=== PATIENT | male | born 1965 | race African-American/Black ===

== ENCOUNTER 2018-04-22 12:35 | Emergency (ER) | payer MEDICAID ==
[~2018-04-22] VITALS: Ht 172.7 cm; Wt 80.0 kg
[2018-04-22 12:45] VITALS: BP 178/108
== END 2018-04-22 16:27 | disposition left against medical advice (07) ==
LOC: ER 12:35
DX: E11.65 Type 2 diabetes mellitus with hyperglycemia (principal); I10 Essential (primary) hypertension; Z53.21 Procedure and treatment not carried out due to patient leaving prior to being seen by health care provider